=== PATIENT | female | born 1985 | race Caucasian/White ===

== ENCOUNTER 2018-09-08 06:38 | Emergency (ER) | payer OTHER ==
[~2018-09-08] VITALS: Ht 170.2 cm; Wt 51.0 kg
--- NOTE | 2018-09-08 06:40 | NUR ---
pt bib remsa for sob x 2 months. pt called 911 because of worsening sob this week. upon arrival to scene, ems found patient to be 79% room air. pt given two breathing treatments and increased o2 to 98% on the nebulizer. Upon arrival to [facility] ed, pt satting 80% on room air. Pt placed on 2L 02 NC, and satting 95%. Pt is in gown in [facility] and educated on er process. pt verbalizes understanding. MURRAY Sheets at BS. Pt attached to vs machines. VSS at this time. Pt call light is within reach. awaiting orders at this time.
[2018-09-08] MEDS ORDERED: methylPREDNISolone SOD SUCC 125 MG/2 ML IVP ONE (07:00)
[2018-09-08] MEDS ORDERED: SODIUM CHLORIDE FLUSH 10ML SYR IVF ONE (07:00)
--- NOTE | 2018-09-08 07:08 | NUR ---
Recieved report from CHICHI Monroy, all questions answered. First contact with pt. Pt resting on gurney and is 93-94% on 2 L oxygen on nasal cannula. Pt tacycardic at 120-130 bpm. Pt AOX4, CMS intact. Pt states, "it feels tight to breathe." Attempted PIV. ED pr intern at bedside at this time to assist in PIV. Lab at bedside. NADN. All safety measures in place. No other needs requested at this time. Call light within reach.
--- NOTE | 2018-09-08 07:10 | NUR ---
report of pt to rj Serna. All questions answered.
[2018-09-08] MEDS ORDERED: ALBUTEROL/IPRATROPIUM 2.5MG/0.5MG, 3 ML ONE ×2 (07:18→08:28)
[2018-09-08] MEDS: ALBUTEROL/IPRATROPIUM 2.5MG/0.5MG, 3 ML NPPB SCH ×2 (07:22→07:23)
[2018-09-08] MEDS ORDERED: methylPREDNISolone SOD SUCC 125 MG/2 ML ONE (07:30)
[2018-09-08 07:31] LABS: BASOPHILS # (AUTO) 0.02 x10^3/uL (0-0.1); BASOPHILS % (AUTO) 0 % (0-1); EOSINOPHILS # (AUTO) 0.88 x10^3/uL (0-0.4); EOSINOPHILS % (AUTO) 10 % (1-7); LYMPHOCYTES # (AUTO) 2.91 x10^3/uL (1-3.4); LYMPHOCYTES % (AUTO) 32 % (22-44); MD NO; MEAN CORPUSCULAR HEMOGLOBIN 27.7 pg (27.0-34.8); MEAN CORPUSCULAR HGB CONC 32.3 g/dL (32.4-35.8); MEAN CORPUSCULAR VOLUME 85.8 fL (80-100); MEAN PLATELET VOLUME 7.1 fL (7.4-10.4); MONOCYTES # (AUTO) 0.51 x10^3/uL (0.2-0.8); MONOCYTES % (AUTO) 6 % (2-9); NEUTROPHILS # (AUTO) 4.67 x10^3/uL (1.8-6.8); NEUTROPHILS % (AUTO) 52 % (42-75); PLATELET COUNT 209 x10^3/uL (130-400); RED BLOOD COUNT 5.43 x10^6/uL (3.82-5.3); RED CELL DISTRIBUTION WIDTH 16.5 % (9.6-15.2)
[2018-09-08 07:35] LABS: ALBUMIN 3.6 g/dL (3.4-5.0); ANION GAP 4 mmol/L (5-15); CALCIUM 8.8 mg/dL (8.5-10.1); CHLORIDE 106 mmol/L (98-107); CREATININE 0.62 mg/dL (0.55-1.02)
--- NOTE | 2018-09-08 07:51 | NUR ---
Provided pt medication per EMAR. PT appreciative. Pt resting on gurney connected to NIBP, continous pulse ox, and document reviewer. NADN. Pt remains on oxygen via nasal cannula at 2.5 L and SPO2% is 91. Pt off oxygen and on room air SPO2% at 83%. ED PA aware. All safety measures in place. No needs requested at this time.
--- NOTE | 2018-09-08 08:28 | NUR ---
Sent yellow slip to pharmacy for medication request.
[2018-09-08] MEDS ORDERED: MAGNESIUM SULFATE 1 GM in SODIUM CHLORIDE 0.9% 50 ML IV ONE (08:30)
[2018-09-08] MEDS ORDERED: LIDODERM 5% PATCH TD PRN (09:00)
[2018-09-08] MEDS ORDERED: ONDANSETRON 2MG/ML, 2ML IVPush PRN (09:00)
[2018-09-08] MEDS ORDERED: ENOXAPARIN 40 MG/0.4 ML SQ SCH (09:00)
[2018-09-08] MEDS ORDERED: ACETAMINOPHEN 325 MG TABLET PO PRN (09:00)
[2018-09-08] MEDS ORDERED: IBUPROFEN 600 MG TABLET PO PRN (09:00)
[2018-09-08] MEDS ORDERED: DOCUSATE 100 MG CAPSULE PO PRN (09:00)
[2018-09-08] MEDS ORDERED: hydrALAzine 20 MG/ML, 1ML IVPush PRN (09:00)
[2018-09-08] MEDS ORDERED: ONDANSETRON ODT 4 MG PO PRN (09:00)
[2018-09-08] MEDS ORDERED: GUAIFENESIN/DM 200-20MG, 10ML UDC PO PRN (09:00)
--- NOTE | 2018-09-08 09:04 | NUR ---
Provided medication per EMAR. Pt appreciative. CHRISTINE. Pt connected to all monitors. All safety measures in place. Call light within reach. No needs expressed at this time.
[2018-09-08 09:05] VITALS: BP 118/63
--- NOTE | 2018-09-08 09:24 | NUR ---
Provided report to CHICHI Bridges. All questions answered. Per hospitalist , holding pt in ED until [facility] lab results come back. CHICHI Bridges aware. ED field pipe lines supervisor aware.
--- NOTE | 2018-09-08 10:14 | NUR ---
FIRST CONTACT WITH PT. TASK RN: PIV DISCONTINUED WITH TIP INTACT. PRESSURE DRESSING APPLIED. PT EDUCATED REGARDING LEAVING AMA, INCLUDING . PT VERBALIZED UNDERSTANDING REGARDING LEAVING AMA INFORMATION. Addendum: 09/08/18 at 1020 by KWALKERCatalina hospitalistRashmi, called. message left on her phone.
--- NOTE | 2018-09-08 10:20 | NUR ---
Patient/Caregiver given discharge instructions and they have confirmed that they understand the instructions. Patient ambulatory with steady gait. pt left with all personal belongings.
[2018-09-08] MEDS ORDERED: ALBUTEROL/IPRATROPIUM 2.5MG/0.5MG, 3 ML NPPB SCH (11:00)
[2018-09-08] MEDS ORDERED: methylPREDNISolone SOD SUCC 125 MG/2 ML IVPush SCH (17:30)
[2018-09-10] MEDS ORDERED: KETOROLAC 30 MG/1 ML ONE (10:48)
== END 2018-09-08 10:22 | disposition left against medical advice (07) ==
LOC: ED 07:58 → EDIP 08:21 → UNDOADMIN 08:21 → UNDODISIN 10:20
DX: J45.901 Unspecified asthma with (acute) exacerbation (principal); F11.10 Opioid abuse, uncomplicated; F17.210 Nicotine dependence, cigarettes, uncomplicated; J96.01 Acute respiratory failure with hypoxia
CPT/HCPCS: 36415; 71045; 80048; 82040; 84703; 85025; 85379; 93005; 94640; 96365; 96375; 99284; J2930; J3475; J7620; 99285